=== PATIENT | male | born 1950 | race Caucasian/White ===

== ENCOUNTER 2024-04-22 07:21 | Emergency (ER) | payer MEDICARE ==
[~2024-04-22] VITALS: Ht 177.8 cm; Wt 113.4 kg
[2024-04-22 07:21] VITALS: BP_SYST 142; PULSE 55; RESP 18; TEMP 97; O2SAT 97
[2024-04-22 08:11] LABS: BASOPHILS % (AUTO) 0.3 % (0.0-2.0); EOSINOPHILS # (AUTO) 0.2 K/uL (0.0-0.4); EOSINOPHILS % (AUTO) 1.3 % (0.0-4.0); HEMATOCRIT 39.5 % (36-54); HEMOGLOBIN 13.1 g/dL (14.0-18.0); LYMPHOCYTES % (AUTO) 31.7 % (20.5-51.5); MEAN CORPUSCULAR HEMOGLOBIN 30 pg (27-31); MEAN CORPUSCULAR HGB CONC 33 % (32-36); MEAN CORPUSCULAR VOLUME 91 fL (79.0-98.0); MONOCYTES # (AUTO) 0.8 K/uL (0.0-1.0); MONOCYTES % (AUTO) 6.2 % (1.7-9.3); NEUTROPHILS # (AUTO) 7.6 K/uL (1.8-7.7); NEUTROPHILS % (AUTO) 60.5 % (40.0-70.0); PLATELET COUNT (AUTO) 250 K/uL (130-430); RED BLOOD CELL COUNT(AUTO) 4.33 MIL/uL (4.2-6.2); RED CELL DISTRIBUTION WIDTH 13.2 % (9.0-15.0); WHITE BLOOD COUNT (AUTO) 12.5 K/uL (4.8-10.8)
[2024-04-22 08:17] LABS: ANION GAP 11 (5-15); CALCIUM 8.1 mg/dL (8.4-11.0); CARBON DIOXIDE 24 mmol/L (23-29); CHLORIDE 110 mmol/L (98-107); CREATININE 0.87 mg/dL (0.55-1.30); GLUCOSE 132 mg/dL (74-106); SODIUM SERUM 145 mmol/L (136-145); UREA NITROGEN, BLOOD 12 mg/dL (8-21)
[2024-04-22 08:23] LABS: POTASSIUM 2.9 mmol/L (3.5-5.1)
[2024-04-22] MEDS ORDERED: POTASSIUM CHLORIDE 20 MEQ TABLET.ER PO ONE (08:30)
[2024-04-22] MEDS: NACL 0.9% 1,000 ML IV ONE (10:19)
[2024-04-22] MEDS: MECLIZINE HCL 25 MG TABLET (ANITVERT) PO ONE (10:20)
[2024-04-22] MEDS: MAGNESIUM SULFATE 1 GM/2 ML VIAL IVP ONE (10:20)
[2024-04-22] MEDS: ONDANSETRON HCL 4 MG/2 ML VIAL IVP ONE ×2 (10:20→11:08)
[2024-04-22] MEDS: POTASSIUM CHLORIDE 40 MEQ in NS 250 ML IV ONE (10:41)
[2024-04-22 11:59] VITALS: BP_SYST 123; PULSE 62; RESP 18; TEMP 97.8; O2SAT 98
== END 2024-04-22 11:43 | disposition short-term general hospital (02) ==
LOC: SED 07:21
DX: R55 Syncope and collapse (principal); R42 Dizziness and giddiness; E87.6 Hypokalemia; Z20.822 Contact with and (suspected) exposure to COVID-19; I10 Essential (primary) hypertension; E66.9 Obesity, unspecified; Z68.35 Body mass index [BMI] 35.0-35.9, adult
CPT/HCPCS: 99285; 96365; 70450; 96375; 71045; 87426; 80048; 83880; 85025; 84484; 36415; 93005; 82948; J3475; J2405; J3480; J7050; J8597